=== PATIENT | female | born 1960 | race Caucasian/White ===

== ENCOUNTER 2019-02-16 07:54 | Inpatient (IN) | payer MEDICARE, MEDICAID ==
--- NOTE | 2019-02-16 08:18 | ED ---
Altered Mental Status - HPI Summary HPI Summary: Patient is a 58 y/o F presenting to [facility] via EMS for AMS. Patient was found unconscious in front of kitchen fridge this morning by . noted the patient was still breathing at the time and he called EMS. EMS reports that the had stated that the patient was at baseline last night. Upon EMS arrival, patient was moaning and incomprehensible. Consciousness gradually improved during transport, patient is alert but disoriented. Patient had complaints of NARANJO and slight photophobia. However, she is unable to answer most questions. She had slurred voice, but reports this is typical for the patient. Hx of brain surgery 15 years ago is noted. Patient had also noted that she was thirsty; BG was 174 per EMS. She also states that she had taken some pills last night, but does not answer any further questions about this. believes there were no illicit drugs involved. PMHx of HTN, patient is on gabapentin as well. EMS also states that the patient appeared to be having visual hallucinations during transport, as she was asking, "Why am I seeing things?" EMS 12 Lead was nondiagnostic for STEMI. EMS arrived 0750, provider at bedside immediately to evaluate. Home medications and allergies are reviewed. Patient is a level 5 caveat due to AMS. - History Of Current Complaint Stated Complaint: UNRESPONSIVE THIS AM PER EMS Hx Obtained From: Patient - limited history due to AMS, EMS Hx From Patient Unobtainable Due To: Altered Mental Status - limited history due to AMS, Patient is a level 5 caveat due to AMS. Onset/Duration: Still Present Timing: Constant Character: Responsiveness Associated Signs And Symptoms: Positive: Headache - Allergies/Home Medications Allergies/Adverse Reactions: Allergies Allergy/AdvReac Type Severity Reaction Status Date / Time No Known Allergies Allergy Verified 02/16/19 07:59 Home Medications: Home Medications Divalproex Sodium [Divalproex Sodium ER] 500 mg PO QPM 02/16/19 [History Confirmed 02/16/19] Ferrous Sulfate 325 mg PO DAILY 02/16/19 [History Confirmed 02/16/19] Gabapentin CAP(*) [Neurontin 100 mg CAP(*)] 100 mg PO BID 02/16/19 [History Confirmed 02/16/19] Naproxen [Naproxen 500 mg tab] 500 mg PO BID PRN 02/16/19 [History Confirmed ] hydroCHLOROthiazide [Hydrochlorothiazide] 25 mg PO DAILY 02/16/19 [History Confirmed 02/16/19] PMH/Surg Hx/FS Hx/Imm Hx Endocrine/Hematology History: Denies: Hx Diabetes Cardiovascular History: Reports: Hx Hypertension Denies: Hx Pacemaker/ICD History: Denies: Hx Renal Disease Sensory History: Reports: Hx Hearing Aid - WILL REMOVE Psychiatric History: Denies: Hx Panic Disorder - Cancer History Cancer Type, Location and Year: BRAIN TUMOR Hx Chemotherapy: No Hx Radiation Therapy: No - Surgical History Surgery Procedure, Year, and Place: lt sided brain surgery 11/08/2007- SEE OTHER FACILITIES REPORTS FOR INFORMATION, OPERATIVE REPORT UNOBTAINABLE, OK'D FOR 1.[address] ANDERSON - Family History Known Family History: Negative: Cardiac Disease, Hypertension, Diabetes - Social History Lives: With Family Alcohol Use: None Substance Use Type: Reports: None Review of Systems - ROS Summary Review of Systems Summary: Patient is a level 5 caveat due to AMS. Positive: Photophobia Neurological: Other - positive - AMS Positive: Headache Psychological: Other - positive - visual hallucinations All Other Systems Reviewed And Are Negative: No - Comments Additional Review of Systems Comments: Patient is a level 5 caveat due to AMS. Physical Exam - Summary Physical Exam Summary: VITAL SIGNS: Reviewed. GENERAL: Patient is a well-developed and nourished female who is lying comfortable in the stretcher. Patient is not in any acute respiratory distress. HEAD AND FACE: No signs of trauma. No ecchymosis, hematomas or skull depressions. No sinus tenderness. EYES: PERRLA, EOMI x 2, No injected conjunctiva, no nystagmus. EARS: Hearing grossly intact. Ear canals and tympanic membranes are within normal limits. MOUTH: Oropharynx within normal limits. NECK: Supple, trachea is midline, no adenopathy, no JVD, no carotid bruit, no c- spine tenderness, neck with full ROM. CHEST: Symmetric, no tenderness at palpation. LUNGS: Clear to auscultation bilaterally. No wheezing or crackles. CVS: Regular rate and rhythm, S1 and S2 present, no murmurs or gallops appreciated. ABDOMEN: Soft, non-tender. No signs of distention. No rebound, no guarding, and no masses palpated. Bowel sounds are normal. EXTREMITIES: FROM in all major joints, no edema, no cyanosis or clubbing. NEURO: Agitated, alert but not oriented, confused, unable to respond to any questions or follow commands, GCS 14. SKIN: Dry and warm. Triage Information Reviewed: Yes Vital Signs On Initial Exam: Initial Vitals Temp Pulse Resp BP Pulse Ox 98.2 F 78 14 136/78 99 02/16/19 07:56 02/16/19 07:56 02/16/19 07:56 02/16/19 07:56 02/16/19 07:56 Vital Signs Reviewed: Yes Completion Of Physical Exam Limited Due To: Altered Mental Status, Level 5 - [place] Coma Scale Best Eye Response: 4 - Spontaneous Best Motor Response: 6 - Obeys Commands Best Verbal Response: 4 - Confused Coma Scale Total: 14 Diagnostics - Laboratory Result Diagrams: 02/16/19 08:22 02/17/19 04:30 Lab Statement: Any lab studies that have been ordered have been reviewed, and results considered in the medical decision making process. - Radiology CXR Radiology Interpretation Completed By: Radiologist Summary of Radiographic Findings: IMPRESSION: NO ACTIVE CARDIOPULMONARY DISEASE IS NOTED. THIS REPORT WAS REVIEWED BY DR. TERESA - CT BRAIN CT CT Interpretation Completed By: Radiologist Summary of CT Findings: IMPRESSION: 1. No acute intracranial abnormality. 2. Postoperative changes. THIS REPORT WAS REVIEWED BY DR. TERESA. - EKG 0816 Cardiac Rate: NL - rate of 65 BPM EKG Rhythm: Sinus Rhythm Summary of EKG Findings: EKG showed NSR with rate of 65 BPM, no STEMI. ED physician has reviewed and interpreted this EKG. Re-Evaluation - Re-Evaluation First Eval Re-Evaluation Time: 08:41 Change: Improved Comment: Patient is alert and oriented x3 at present. Patient states that she has a NARANJO and notes that she has Hx of seziures, for which she is followed by Dr. Aguila. Second Eval Re-Evaluation Time: 08:53 Comment: Aware of acetaminophen level of 161. Third Eval Re-Evaluation Time: 09:05 Comment: Charge nurse Barbara contacted poison control. Per her note, "Spoke with poison control, Crys. Received recommendations are to start to acetadote , to replace K, add magnesium and repeat CMP and APAP level in 6hrs. They also recommend adding depakote level." Altered Mental Statu Course/Dx - Course Assessment/Plan: Patient is a 58 y/o F presenting to [facility] via EMS for AMS. Patient was found unconscious in front of kitchen fridge this morning by . noted the patient was still breathing at the time and he called EMS. EMS reports that the had stated that the patient was at baseline last night. Upon EMS arrival, patient was moaning and incomprehensible. Consciousness gradually improved during transport, patient is alert but disoriented. Patient had complaints of NARANJO and slight photophobia. However, she is unable to answer most questions. She had slurred voice, but reports this is typical for the patient. Hx of brain surgery 15 years ago is noted. Blood work without any significant abnormality except for potassium level of 3.2, glucose 135, urinalysis is negative for UTI, acetaminophen level of 161. Head CT impression: No acute intracranial abnormality. Postoperative changes. Chest x-ray impression: No active cardiopulmonary disease. Initially in the ED course the patient was with altered mental status, she was moving all over the place and alert but not oriented. However, approximately an hour later, the patient is alert and oriented 3. She doesnt remember exactly what happened to her but she is complaining of a severe migraine headache. She has a history of migraine headaches. Therefore the patient was given Toradol, Reglan and Benadryl. The patient also reports that she has a history of seizures and family members reports that she may have had a seizure. However, they are not sure. Since the acetaminophen level was 161, discussed the case with poison control and they recommend for the patient to be started on acetylcysteine. The patient also was given potassium chloride for hypokalemia. I discussed my physical exam and findings with Dr. Caldwell from the ICU services and he accepted the patient for admission. Patient is hemodynamically stable and now she is alert oriented 3. Dr. Caldwell also requested to get a consult from neurology. I discussed case with Dr. Winter from neurology and he will consult for this patient. - Diagnoses Provider Diagnoses: Tylenol toxicity, Altered mental state - Provider Notifications Discussed Care Of Patient With: Boogie Caldwell Time Discussed With Above Provider: 09:21 Instructed by Provider To: Other - Dr. Zhao communicated that Brain CT was negative at 0828. 0921 - Patient's case was discussed with Dr. Caldwell, ICU. Dr. Caldwell states that he would like a repeat acetaminophen level. Neurology consult to be obtained. 0939 - Dr. Caldwell evaluated the patient. Patient had reported recent change to her depakote medication. Dr. Caldwell to admit the patient. 1010 - Patient's case was discussed with Dr. Winter, Dr. Winter agrees to consult on the patient. - Critical Care Time Critical Care Time: 75-104 min Discharge ED - Sign-Out/Discharge Documenting (check all that apply): Patient Departure - admit All imaging exams completed and their final reports reviewed: Yes Patient Received Moderate/Deep Sedation with Procedure: No - Discharge Plan Condition: Stable Disposition: ADMITTED TO [facility] - Billing Disposition and Condition Condition: STABLE Disposition: Admitted to [facility] - Attestation Statements Document Initiated by Veronicae: Yes Documenting Scribe: EDWIN PUCKETT Provider For Whom Scribe is Documenting (Include Credential): STEPHANY TERESA MD Scribe Attestation: IEDWIN, scribed for STEPHANY TERESA MD on 02/17/19 at 0837. Scribe Documentation Reviewed: Yes Provider Attestation: The documentation as recorded by the EDWIN lares accurately reflects the service I personally performed and the decisions made by STEPHANY chavez MD Status of Scribe Document: Viewed
[2019-02-16 08:32] LABS: ABS Lymphocytes 1.1 10^3/ul (1.0-4.8); ABS Monocytes 0.2 10^3/ul (0-0.8); ABS Neutrophils 3.9 10^3/ul (1.5-7.7); Eosinophil % 0.2 %; Hematocrit 36 % (35-47); Lymphocyte % 21.1 %; Mean Corpuscular HGB Conc 33 g/dL (31-36); Mean Corpuscular Hemoglobin 31 pg (27-31); Mean Corpuscular Volume 94 fL (80-97); Platelet Count 211 10^3/uL (150-450); Red Blood Count 3.82 10^6 /uL (3.70-4.87); Red Cell Distribution Width 13 % (10-15); White Blood Count 5.3 10^3/uL (3.5-10.8)
[2019-02-16] MEDS ORDERED: Ketorolac INJ* 30 MG/ML 1 ML VIAL IV PUSH ONE (08:42)
[2019-02-16] MEDS ORDERED: diPHENhydraMINE IV* 50 MG/ML 1 ml VIAL (BENADRYL) SLOW PUSH ONE (08:42)
[2019-02-16] MEDS ORDERED: NS 0.9% 1000 ML** 1,000 ML IV ONE (08:42)
[2019-02-16] MEDS ORDERED: Metoclopramide IV* 5 MG/ML 2 ML VIAL IV SLOW PU ONE (08:42)
[2019-02-16 08:48] LABS: ALT 51 U/L (7-52); AST 52 U/L (13-39); Albumin 4.1 g/dL (3.2-5.2); Albumin/Globulin Ratio 1.7 (1-3); Alkaline Phosphatase 82 U/L (34-104); Anion Gap 6 mmol/L (2-11); BUN/Creatinine Ratio 24.7 (8-20); Blood Urea Nitrogen 18 mg/dL (6-24); CO2 Carbon Dioxide 28 mmol/L (22-32); Chloride 102 mmol/L (101-111); Creatine Kinase 100 U/L (10-223); EGFR African American 99.8 (>60); EGFR Non-African American 82.5 (>60); Globulin 2.4 g/dL (2-4); Glucose 135 mg/dL (70-100); Potassium 3.2 mmol/L (3.5-5.0); Sodium 136 mmol/L (135-145); Total Protein 6.5 g/dL (6.4-8.9)
[2019-02-16 08:49] LABS: Alcohol < 10 mg/dL (<10); Salicylate < 2.50 mg/dL (<30)
[2019-02-16 08:53] LABS: Acetaminophen 161 mcg/mL
[2019-02-16 09:03] LABS: TSH (Thyroid Stimulating Horm) 0.87 mcIU/mL (0.34-5.60)
[2019-02-16] MEDS ORDERED: Potassium Chlor TAB* 20 MEQ TAB.ER PO ONE (09:06)
[2019-02-16 09:08] LABS: Urine Appearance Clear; Urine Bacteria Absent (Absent); Urine Bilirubin Negative (Negative); Urine Blood Negative (Negative); Urine Color Yellow; Urine Glucose Negative (Negative); Urine Ketones Negative (Negative); Urine Nitrite Negative (Negative); Urine Protein Negative (Negative); Urine Red Blood Cell Absent (Absent); Urine Specific Gravity 1.041 (1.010-1.030); Urine Squamous Epithelial Cell Present (Absent); Urine Urobilinogen Negative (Negative); Urine White Blood Cell Trace(0-5/hpf) (Absent)
[2019-02-16] MEDS ORDERED: Acetylcysteine ORAL SOL* 200 MG/ML VIAL PO ONE (09:08)
[2019-02-16 09:29] LABS: Urine Benzodiazepine Screen None Detected (None Detect); Urine Opiates Screen None Detected (None Detect)
--- NOTE | 2019-02-16 09:56 | HP ---
History of Present Illness - History of Present Illness Reason for Visit: LOC History of Present Illness: 58 F with hx of seizures (last seizures 15 years ago) on Depakote and s/p temporal lobe resection 15 years ago p/w LOC. found patient in kitchen. Patient was in USOH prior to episode. No preceding cardiac Sx's such as CP's, palpitations, N/V, pre-syncope. Patient denies any focal neuro deficits including motor, sensory or visual deficits. found patient confused after episode. In the next hour though patient was more alert and oriented. No trauma to body. This week Depakote levels were "changed around by Neurologist per ." Patient takes her medications. No ETOH or drugs. Patient does state she takes 2 Tylenol per day for headaches. Patient evaluated in the ED. CTH negative. Depakote levels pending. Tylenol levels sent and were elevated. Repeat levels pending. Per the patient, she denies taking no more than 2 Tylenol a day. All other urine toxicology negative. ICU called for elevated Tylenol levels. - Past Medical History Cardiac: HTN FAMILY INTERVENTION SPECIALIST: Migraine, Seizure, Other - temporal lobe resection 15 years ago Heme/Onc: Iron deficiency anemia Psych: Other - migraines - Past Family History Family History: None - Past Social History Smoke: No Alcohol: None Drugs: None Lives: With Family Review of Systems - Review of Systems ENT: Positive: Other - WALES Neurological: Positive: Other - chronic headaches - Medications/Allergies Allergies/Adverse Reactions: Allergies Allergy/AdvReac Type Severity Reaction Status Date / Time No Known Allergies Allergy Verified 02/16/19 07:59 Medications: Current Medications Acetylcysteine 8,355 mg/ (Dextrose) 241.775 mls @ 241.775 mls/hr IV ONCE ONE Stop: 02/16/19 10:59 Last Admin: 02/16/19 09:40 Dose: 241.775 mls/hr Exam - Exam Vital Signs: Vital Signs (72 hours) 02/16/19 02/16/19 02/16/19 07:55 07:56 08:00 Temperature 98.2 F Pulse Rate 73 78 70 Respiratory 16 14 15 Rate Blood Pressure 136/78 136/78 (mmHg) O2 Sat by Pulse 98 99 99 Oximetry 02/16/19 02/16/19 02/16/19 08:10 08:40 09:00 Temperature Pulse Rate 80 78 69 Respiratory 16 15 17 Rate Blood Pressure 150/80 154/75 (mmHg) O2 Sat by Pulse 99 99 100 Oximetry 02/16/19 02/16/19 09:11 09:40 Temperature Pulse Rate 73 74 Respiratory 14 16 Rate Blood Pressure 142/77 132/79 (mmHg) O2 Sat by Pulse 98 98 Oximetry General: Alert, Oriented x3, Other - lethargic HEENT: Atraumatic, PERRLA, EOMI Lungs: Clear to auscultation Cardiovascular: Regular rate Abdomen: Normal bowel sounds, Soft, No tenderness, No hepatospenomegaly Extremities: No clubbing, No cyanosis, No edema Skin: No rashes, No significant lesion Neurological: Normal speech, Other - WALES Psych/Mental Status: Mental status NL Assessment/Plan - Assessment/Plan Assessment: Seizures Tylenol OD? Migraines Plan: Check EEG Fall and seizure precautions Check Depakote levels Neurology consult Repeat Tylenol levels. If elevated, then start NAC 20 hour protocol F/U Liver enzymes and coags Continue NAC CCM time 45 minutes
[2019-02-16] MEDS ORDERED: D5W IV ONE ×3 (10:00→15:00)
[2019-02-16] MEDS ORDERED: ACETYLCYSTEINE IV ONE ×3 (10:00→15:00)
--- NOTE | 2019-02-16 14:31 | EEG ---
ELECTROENCEPHALOGRAPHY: DATE OF STUDY: 02/16/19 - ROOM #ICU-05 DATE READ: 02/16/19 ORDERED BY: Dr. Swapnil Muñoz. CLINICAL PROBLEM: Ms. Hernandez is a 58-year-old female who was found unresponsive. This EEG was obtained to evaluate for epileptiform discharges or electrographic seizures. MEDICATIONS: 1. Depakote. 2. Gabapentin. CLINICAL STATE: Waking. REPORT: The waking background showed appropriate organization with clearly defined anterior-posterior voltage and frequency gradients. There was a well- defined posterior dominant rhythm of 10 Hz, which was symmetrical and showed normal reactivity. Anteriorly, there was an expected pattern of lower voltage, irregular, mixed faster frequency. Over the left temporal region, there was a continuous high amplitude alpha frequency of 9 to 10 Hz seen throughout the recording. Hyperventilation and photic stimulation were not performed. Single electrode EKG showed normal sinus rhythm with a rate of 90 beats per minute. Throughout the recording, there were no epileptiform discharges. CLINICAL IMPRESSION: This is an essentially normal awake EEG with high amplitude alpha frequency over the left temporal region most consistent with a breach rhythm. There were no epileptiform discharges or electrographic seizures. [id number]/[facility] #: [id number] [facility] CENTERLiset
[2019-02-16 14:52] LABS: Magnesium 1.8 mg/dL (1.9-2.7)
[2019-02-16] MEDS: Divalproex ER TAB(*) 500 MG PO SCH ×2 (16:08→19:39)
[2019-02-16] MEDS: Potassium Chlor TAB* 20 MEQ TAB.ER PO ONE ×2 (16:09→16:11)
--- NOTE | 2019-02-16 16:29 | CONS ---
NEUROLOGY CONSULTATION NOTE: DATE OF CONSULT: 02/16/19 CONSULTING PROVIDER: Dr. Muñoz. REASON FOR CONSULT: Suspect seizures. CHIEF COMPLAINT: Found unresponsive. HISTORY OF PRESENT ILLNESS: Mrs. 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 The patient follows up with Dr. Aguila for seizures and headaches. Her last seizure was in 2007 before the diagnosis of the intracranial tumor. The patient has not had any seizures since then. The patient is on Depakote 500 mg extended release at night. Her level has been subtherapeutic since 2013. No intervention or change in her medication was made because the patient is seizure free. According to the family, the patient has been complaining of forgetfulness, increased headaches, and feeling fatigued for the past 1 year. The patient has been averaging 8 to 12 tablets of Tylenol 500 mg a day. The patient apparently was last known well last night. She was complaining of a headache. She took 4 tablets of 500 mg each of Tylenol. She then woke up in the middle of the night and took another 4 tablets of Tylenol. She finally woke up at 5:30, went to the kitchen and then does not recall the events that took place. The patient was found by her at 6:15 on the floor cyanotic, cold to touch, and unresponsive. There was no reported urinary or bowel incontinence. There was no tongue biting. The patient recalls brewing her coffee and going in the kitchen, opening the refrigerator to get creamers. She did not hit her head. She has no residual weakness. She is back to her normal self. According to her daughter, the patient has been acting "weird" for the last few weeks. She is forgetting conversations and when talking to friends, she texted the same messages over and over again every 10 to 15 minutes. This has been ongoing throughout the summer. During family events, the patient does not get involved in barbeque gatherings and interact with people like she used to do. The patient reports chronic headaches. The headaches are described as pressure pain in the front region, nonradiating, associated with light sensitivity and nausea, and is currently 8/10 in severity. Tylenol definitely helps the pain. She thinks the medication is causing the headaches. I reviewed Dr. Aguila's note from recent encounter in December 2018 where gabapentin was increased to help with the patient's pain. There was a reported MRI brain done recently to look for any tumor recurrence. The brain MRI was done on 09/06/18 and was reported to show status post resection of the left anterior temporal lobe with no abnormal enhancement to suggest residual or recurrent tumors. PAST MEDICAL HISTORY: Migraine headaches; left anterior temporal tumor, status post resection; rare seizures with last seizure occurring will be 08/2007; iron deficiency anemia; hypertension; hearing impairment due to a mumps infection when she was a child. MEDICATIONS: 1. Naproxen 500 mg p.o. b.i.d. 2. Ferrous sulfate 325 mg p.o. daily. 3. Hydrochlorothiazide 25 mg p.o. daily. 4. Depakote extended release 500 mg p.o. at night. 5. Gabapentin, she is taking 100 mg in the morning and 300 at night. ALLERGIES: No known drug allergies. FAMILY HISTORY: No family history of stroke or seizures. SOCIAL HISTORY: The patient lives with her . She is on disability. She quit smoking over 30 years ago. She denied any excessive alcohol use. She drinks occasionally during family gatherings. REVIEW OF SYSTEMS: A 14-point review of systems was obtained and otherwise negative except for what is mentioned in the HPI. PHYSICAL EXAM: Vitals: Temperature of 98.6, pulse of 61, respiratory rate of 11, oxygen saturation of 99%, blood pressure is 164/80. General: Well- nourished, well- developed female in no acute distress. Head: Atraumatic and normocephalic without any obvious abnormality. Eyes: Conjunctivae/corneas are clear. Neck is supple and symmetrical with no carotid bruits. Cardiovascular: Regular rate and rhythm with normal S1, S2. Respiratory: Clear to auscultation bilaterally with no wheezing or rhonchi. Extremities: Normal range of motion with no cyanosis, edema, hammertoes or high arches. Skin: No skin lesions or lacerations. Psych: Broad affect, normal mood. Easy to establish rapport. Neurological Examination: Mental Status: Awake, alert, oriented to person, place, time, and general circumstances. Her speech and language including expression and comprehension were assessed and found to be normal. Cranial Nerves: Pupils equal, round, reactive to light. Extraocular muscles are intact. Normal confrontation testing bilaterally. Normal sensation to light touch bilaterally. No facial asymmetry. Tongue is symmetric and midline with no atrophy or fasciculation. She is hard of hearing. Motor Examination: 5/5 strength in the upper and lower extremities with normal tone and bulk throughout. Sensation is intact to light touch and pinprick throughout. Reflexes 2+ in the upper and lower extremities, 1+ at the ankles bilaterally. Downgoing plantar responses. Coordination: Normal finger- to-nose and [id number] testing bilaterally. Gait: Normal stance and gait with no ataxia. DIAGNOSTIC STUDIES/LAB DATA: Labs, imaging, and other diagnostic testing: The patient was found to have an elevated acetaminophen level of 161 and it dropped to 131 after an acetylcysteine. The patient's valproic acid level was 34. This has been one of the lowest Depakote levels obtained in the past. The patient was admitted to the ICU for an acetylcysteine protocol due to acetaminophen toxicity. Imaging studies: CT of the head without contrast was completed today and showed no evidence of acute intracranial abnormality. There are postoperative changes. There is an EEG that was obtained today and was personally read by me. This is essentially a normal EEG with breach rhythm over the left temporal region. ASSESSMENT AND RECOMMENDATION: Mrs. Astrid Hernandez is a 58-year-old female with a history of left anterior tumor, temporal astrocytoma status post resection in 2007, who had her last seizure in 2007, who presented after being found unresponsive, cyanotic, and pale appearing. The patient was found to have acetaminophen toxicity. However, there is concern that she may have had a seizure that led to her transient unresponsive episode. 1. Acetaminophen toxicity. The patient takes 6000 to 7000 mgs of acetaminophen a day due to her severe headache. An acetylcysteine protocol has been initiated. The patient is currently in ICU for close monitoring. Her acetaminophen level has decreased over the last few hours. I do not think this clearly explains her brief episode of unresponsiveness. 2. Suspicion for breakthrough seizure - the patient's valproic acid level was subtherapeutic. Although she has not had seizures for over 10 years now, she may have had a breakthrough event given the low valproic acid level. Other concerning etiologies include tumor recurrence that may have caused a seizure, especially given the description of her memory impairment and reduced interaction with family members over the past few months. I recommend obtaining an MRI with and without contrast to evaluate for any possible recurrence of the left anterior temporal lobe astrocytoma. No need for intravascular imaging as I do not suspect this is a transient ischemic attack or a stroke. I have increased her Depakote to 500 mg twice daily. This will help with her migraine headache, help with any mood problems, and control her seizures. We discussed other interventions such as Vimpat, Keppra, or zonisamide. We have decided to stick with the Depakote given that she has been tolerating the medication since 2007, and she does not have any evidence of severe liver injury due to the acetaminophen toxicity. However, if her liver enzymes worsen overnight or the next few days, we will need to discuss weaning her off the Depakote and starting her on either Vimpat or levetiracetam. Continue seizure precautions. The patient does not operative a vehicle. We discussed good seizure hygiene. 3. Headaches: likely due to the combination of analgesic rebound, migraine, and post surgical headache- increase Depakote. Minimize the use of analgesics. Start magnesium oxide 400 mg daily. I will continue to follow. I discussed the plan and care with the patient and her daughter at bedside. I answered their questions to the best of my abilities. I will continue to follow. [id number]/[facility] #: [id number] ODALIS
[2019-02-16] MEDS ORDERED: Gadoteridol* (CONTRAST) 279.3 MG/ML 10 ML IV ONE (17:33)
[2019-02-17] MEDS ORDERED: Gabapentin CAP(*) 300 MG PO ONE (01:12)
[2019-02-17 05:11] LABS: Acetaminophen < 15 mcg/mL
[2019-02-17 05:12] LABS: ALT 169 U/L (7-52); AST 92 U/L (13-39); Albumin/Globulin Ratio 1.8 (1-3); Alkaline Phosphatase 79 U/L (34-104); Anion Gap 6 mmol/L (2-11); BUN/Creatinine Ratio 9.9 (8-20); Blood Urea Nitrogen 7 mg/dL (6-24); CO2 Carbon Dioxide 29 mmol/L (22-32); Chloride 106 mmol/L (101-111); EGFR Non-African American 85.2 (>60); Globulin 2.2 g/dL (2-4); Glucose 128 mg/dL (70-100); Potassium 3.1 mmol/L (3.5-5.0); Sodium 141 mmol/L (135-145); Total Protein 6.2 g/dL (6.4-8.9)
[2019-02-17] MEDS ORDERED: Potassium Chlor TAB* 20 MEQ TAB.ER PO ONE (06:30)
[2019-02-17] MEDS: Divalproex ER TAB(*) 500 MG PO SCH ×2 (07:57→21:10)
[2019-02-17] MEDS ORDERED: Naproxen TAB* 250 MG PO PRN (08:28)
[2019-02-17] MEDS: Gabapentin CAP(*) 100 MG PO SCH ×2 (08:43→21:10)
[2019-02-17] MEDS ORDERED: Hydrochlorothiazide TAB* 25 MG PO SCH (09:00)
--- NOTE | 2019-02-17 09:27 | PN ---
Subjective Date of Service: 02/17/19 Length of Stay: 1 Days Neurology is following for suspected seizures. Interval History: She has not had any unusual episodes overnight. She is eating her breakfast and requesting to be discharged. I explained to her the bump in her liver enzymes, and the importance of monitoring her for at least another day. She agreed. She denied any headaches today but has sinus pressure in the maximally region. She denied any new weakness or paresthesia. No family was at bedside today. Labs: Potassium: 3.1 Glucose: 128 Magnesium: 1.8 AST: 52 -> 92 ALT: 51 -> 169 Total protein 6.2 TSH: 0.87 Acetaminophen: 131 -> <15 MRI brain with/without contrast completed on 02/16/2019: Reviewed. 1. No acute ischemia, mass, hemorrhage or enhancing lesions identified. 2. Previous left temporal resection, with stable post operative changes Review of Systems: Denied CP, SOB, or palpitations. Objective Active Medications: Divalproex Sodium (Depakote Er Tab(*)) 500 mg PO BID [facility] Last Admin: 02/17/19 07:57 Dose: 500 mg Gabapentin (Neurontin Cap(*)) 100 mg PO BID [facility] Last Admin: 02/17/19 08:43 Dose: 100 mg Hydrochlorothiazide (Hydrodiuril Tab*) 25 mg PO DAILY [facility] Last Admin: 02/17/19 08:44 Dose: 25 mg Naproxen (Naprosyn Tab*) 500 mg PO BID PRN PRN Reason: PAIN - MILD Last Admin: 02/17/19 08:44 Dose: 500 mg Vital Signs 02/17/19 02/17/19 02/17/19 07:30 08:00 08:01 Temperature 98.7 F Pulse Rate 81 84 85 Respiratory 20 17 15 Rate Blood Pressure 146/73 153/82 (mmHg) O2 Sat by Pulse 96 99 96 Oximetry 02/17/19 08:32 Temperature Pulse Rate 75 Respiratory 18 Rate Blood Pressure 168/84 (mmHg) O2 Sat by Pulse 97 Oximetry Intake and Output Last 24 Hours 02/15/19 02/16/19 02/17/19 02/18/19 06:59 06:59 06:59 06:59 Intake Total 2228.9 Output Total 3100 500 Balance -871.1 -500 Weight 132 lb 4.438 oz Intake: IV Fluids 1248.9 mucomyst 1248.9 Oral 980 Output: Urine 3100 500 Other: # Bowel Movements 1 Estimated Stool Amount Large Oxygen Devices in Use Now: None Neurology Exam: General: Well nourished, well developed, and in no acute distress HEENT: Normocephelic/atraumatic, sclera anicteric, mucous membranes moist Neck: Supple Chest: Clear to auscultation bilaterally Cardiovascular: Regular rate and rhythm without murmurs, rubs, gallops Extremities: No clubbing, cyanosis, or edema Neurological Findings: Awake, alert, and oriented to person, place, and time. Speech: fluent without dysarthria, repetition intact Cranial Nerve: PERRL, EOM intact, VFF, no nystagmus, face symmetric bilaterally , facial sensation intact, hard of hearing, palate elevates symmetrically, tongue midline, SCM and Trapezius s/s. Motor: s/s throughout, proximal and distal extremities x4 tone/bulk normal Sensation: intact to LT/PP bilaterally upper and lower extremities Deep Tendon Reflex: 1+ symmetric in the upper/lower extremities, Babinski - down going Finger to nose, rapid alternating movements intact without tremor, no dysdiadochokinesia Gait: she has been walking around to the toilet, but not outside the room. Not assessed Result Diagrams: 02/16/19 08:22 02/17/19 04:30 Microbiology and Other Data: Microbiology 02/16/19 11:16 Nasal Screen MRSA (PCR) - Final Nasal Mrsa Not Detected Assessment/Plan Mrs. 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 The patient has recovered well and is back to her normal self. She was found to have unintentional acetaminophen overdose (averaged 6-7000 mg of acetaminophen intake in 24 hours due to headaches). Overnight, the patient had an increase in transaminasis with resolution of the acetaminophen toxicity. She has not had any seizures. 1. Unintentional acetaminophen overdose- acetaminophen level is <13 now. NAC will be discontinued today (according to the bedside nurse). Continue to hold acetaminophen. Encouraged her to take magnesium oxide 400 mg daily for headache prevention. 2. Acute transaminitis- could be related to a late effect of acetaminophen toxicity, or due to the increase in Depakote that was done yesterday. Repeat the LFTs today. If it's trending upward, will discontinue Depakote and start lacosamide 100 mg twice daily. She will benefit from L-carnitine supplementation. 3. Tumor related seizures - on Depakote. Repeat valproic acid level. If transaminitis does not improve, discontinue Depakote and start lacosamide 100 mg twice daily. 4. Headache- due to the combination of analgesic rebound headache, migraine, and possible tumor resection related nerve injury. NSAIDs and magnesium oxide supplementation. I will follow-up with the results and make further recommendations if necessary. Discussed with the patient and she agreed with the plan.
--- NOTE | 2019-02-17 10:21 | PN ---
Progress Note - Progress Note Date of Service: 02/17/19 - Transfer note Note: Pt seen and examined at bedside. Pt reports sinus headaches. No acute events o/ n. Pt asking to be discharged home Home meds: Divalproex Sodium [Divalproex Sodium ER] 500 mg PO QPM Ferrous Sulfate 325 mg PO DAILY Gabapentin CAP(*) [Neurontin 100 mg CAP(*)] 100 mg PO BID Naproxen [Naproxen 500 mg tab] 500 mg PO BID PRN hydroCHLOROthiazide [Hydrochlorothiazide] 25 mg PO DAILY Active Medications Generic Name Dose Route Start Last Admin Trade Name Freq PRN Reason Stop Dose Admin Divalproex Sodium 500 mg 02/16/19 15:00 02/17/19 07:57 Depakote Er Tab(*) PO 500 mg BID [facility] Administration Gabapentin 100 mg 02/17/19 09:00 02/17/19 08:43 Neurontin Cap(*) PO 100 mg BID [facility] Administration Hydrochlorothiazide 25 mg 02/17/19 09:00 02/17/19 08:44 Hydrodiuril Tab* PO 25 mg DAILY [facility] Administration Naproxen 500 mg 02/17/19 08:28 02/17/19 08:44 Naprosyn Tab* PO 500 mg BID PRN Administration PAIN - MILD Vital Signs Temp Pulse Resp BP Pulse Ox 98.7 F 89 20 107/92 98 02/17/19 08:00 02/17/19 09:01 02/17/19 10:00 02/17/19 09:01 02/17/19 09:01 O/E: Pt in NAD HEENT: PERRLA, no JVD Lungs: Good a/e b/l CVS: S1, S2+ Abd: Soft, BS+ Ext: No edema Neuro: Alert,awake Laboratory Results - last 24 hr 02/16/19 02/16/19 02/17/19 08:22 09:59 04:30 Sodium 136 141 Potassium 3.2 L 3.1 L Chloride 102 106 Carbon Dioxide 28 29 Anion Gap 6 6 BUN 18 7 Creatinine 0.73 0.71 Est GFR ( Amer) 99.8 103.0 Est GFR (Non-Af Amer) 82.5 85.2 BUN/Creatinine Ratio 24.7 H 9.9 Glucose 135 H 128 H Calcium 9.0 9.0 Magnesium 1.8 L Total Bilirubin 0.30 0.40 AST 52 H 92 H ALT 51 169 H Alkaline Phosphatase 82 79 Total Creatine Kinase 100 Troponin I 0.00 Total Protein 6.5 6.2 L Albumin 4.1 4.0 Globulin 2.4 2.2 Albumin/Globulin Ratio 1.7 1.8 TSH 0.87 Salicylates < 2.50 Acetaminophen 161 H* 131 H* < 15 Valproic Acid 34.0 L Serum Alcohol < 10 Transfer summary: 58-year-old female with history of tumor-related seizures, 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 She was evaluated by neurology, evaluated for possible break through seizures. She was found to have unintentional acetaminophen overdose (averaged 6-7000 mg of acetaminophen intake in 24 hours due to headaches). She was started on N- acetyl cysteine. She has completed infusion this am. Overnight, the patient had an increase in transaminasis with resolution of the acetaminophen toxicity, tylenol levels within normal limits. She has not had any seizures. EEG was done this am. Mental status significantly improved this am. She is continued on Depakote. Neurology f/u this am. Pt to have rpt LFTs later today. Potassium was repleted. She was started on regular diet. Elevated BP this am, was restarted on HCTZ. c/ w Neurontin. OOB to chair Pt stable to be transferred to regular medical floor.
[2019-02-17 13:24] LABS: Albumin 4.1 g/dL (3.2-5.2); Albumin/Globulin Ratio 1.6 (1-3); Globulin 2.5 g/dL (2-4); Indirect Bilirubin 0.3 mg/dL (0.3-1.0); Total Bilirubin 0.4 mg/dL (0.2-1.0); Total Protein 6.6 g/dL (6.4-8.9)
--- NOTE | 2019-02-17 16:49 | PN ---
Progress Note - Progress Note Date of Service: 02/17/19 SOAP: Reviewed the results from the most recent LFTs. Recommendations: If the LFTs continue to trend down, then clearly the elevation was related to acetaminophen toxicity and not due to the increase dose in Depakote. Therefore , continue the current dose of Depakote 500 mg BID. Repeat another CMP tomorrow. If the LFTs continue to trend downward, then continue the current Depakote dose. It's still puzzling why she was found unresponsive, but a breakthrough seizure is high on the differentials. I have signed off to Dr. Bustillo and informed him about Mrs. Hernandez. I did not ask him to see the patient tomorrow, but please feel free to call for any questions. We will set up a follow-up appointment with Dr. Aguila within the next 4-6 weeks. Amelia Winter MD
[2019-02-18] MEDS ORDERED: amLODIPine TAB* 5 MG PO SCH (09:00)
[2019-02-18 09:21] LABS: Albumin/Globulin Ratio 1.7 (1-3); BUN/Creatinine Ratio 19.2 (8-20); Calcium 9.5 mg/dL (8.6-10.3); EGFR African American 99.8 (>60); EGFR Non-African American 82.5 (>60); Globulin 2.3 g/dL (2-4); Indirect Bilirubin 0.4 mg/dL (0.3-1.0); Magnesium 1.8 mg/dL (1.9-2.7); Potassium 3.5 mmol/L (3.5-5.0); Total Bilirubin 0.5 mg/dL (0.2-1.0); Total Protein 6.3 g/dL (6.4-8.9)
[2019-02-18] MEDS ORDERED: Magnesium Sulfate 1 GM IV* 1 GM/100 ML BAG IV ONE (09:28)
[2019-02-18] MEDS: Divalproex ER TAB(*) 500 MG PO SCH (10:23)
[2019-02-18] MEDS: Gabapentin CAP(*) 100 MG PO SCH (10:23)
[2019-02-18 12:03] VITALS: BP 124/57
--- NOTE | 2019-02-18 14:45 | PN ---
Subjective Date of Service: 02/18/19 Interval History: Patient has no abdominal pain, nausea, vomiting or jaundice. feels fine; wants to go home Objective Vital Signs - 8 hr 02/18/19 02/18/19 02/18/19 07:15 08:00 10:23 Temperature 97.9 F Pulse Rate 86 Respiratory 16 18 16 Rate Blood Pressure 144/72 (mmHg) O2 Sat by Pulse 99 Oximetry 02/18/19 11:15 Temperature 97.4 F Pulse Rate 79 Respiratory 16 Rate Blood Pressure 124/57 (mmHg) O2 Sat by Pulse 97 Oximetry Oxygen Devices in Use Now: None Exam: Patient is sitting on a chair with no acute distress. HEENT: Normocephalic and atraumatic Lungs: Clear with no added sound Heart: S1/S2 heard with no murmur Abdomen: Soft, nondistended and nontender Extremities: No swelling and cyanosis Neuro: alert, conscious and oriented. Moving all four extremities Result Diagrams: 02/16/19 08:22 02/18/19 08:46 Microbiology and Other Data: Microbiology 02/16/19 11:16 Nasal Screen MRSA (PCR) - Final Nasal Mrsa Not Detected Assess/Plan/Problems-Billing Assessment: 58 y/o F with h/o left temporal astrocytoma(resected), seizures(reolved after tumor resection), HTN presented with unintentional ingestion of tylenol(6000- 7000 mg) and was found responsive, cyanotic and pale. FOund to have acetaminophen toxicity(resolved) and probable recurrence of seizure. - Patient Problems (1) Acetaminophen toxicity Status: Acute Code(s): T39.1X1A - POISONING BY 4-AMINOPHENOL DERIVATIVES, ACCIDENTAL, INIT SNOMED Code(s): 84854866 Comment: unintentional ingestion of tylenol after she had severe headache( 0616-2289 mg) abnormal LFT and serum acetaminophen level high treated with N-acetylcysteine in ICU resolved now advised to be careful about tylenol ingestion (2) Seizure Status: Acute Code(s): R56.9 - UNSPECIFIED CONVULSIONS SNOMED Code(s): 51073295 Comment: was found unresponsive probably had seizure EEG, CT and MRI normal depakote dose increased to 500 mg BID (3) Hypertension Status: Acute Code(s): I10 - ESSENTIAL (PRIMARY) HYPERTENSION SNOMED Code(s) : 69777572 Comment: stopped HCTZ and started on amlodipine 5 mg PO daily was hypokalemic; corrected (4) DVT prophylaxis Status: Acute Code(s): Z29.9 - ENCOUNTER FOR PROPHYLACTIC MEASURES, UNSPECIFIED SNOMED Code(s): 540785832 Comment: ambulatory (5) Full code status Status: Acute Code(s): Z78.9 - OTHER SPECIFIED HEALTH STATUS SNOMED Code(s) : 011433327 Status and Disposition: inpatietn; can be d/c today Attending: Sanujana Rowland Attestation Documenting Resident: Grecia Romano Supervising Physician: Sanjuana Rowland Attestation: This service has been performed in part by a resident under the direction of a teaching physician.I, Sanjuana Rowland, performed the service, or was physically present during the critical, or martinez portions of the service, furnished by the resident. I participated in the management of the patient.
--- NOTE | 2019-02-18 17:00 | DS ---
CC: Ginny Tyler; Dr. Winter * DISCHARGE SUMMARY: DATE OF ADMISSION: 02/16/19 DATE OF DISCHARGE: 02/18/19 PRIMARY CARE PHYSICIAN: Ginny Tyler. PRIMARY DIAGNOSES: 1. Unresponsiveness, likely secondary to seizure disorder. 2. Unintentional acetaminophen overdose. 3. Analgesic rebound headache versus migraine. 4. Hypokalemia from hydrochlorothiazide. SECONDARY DIAGNOSES: 1. Hypertension. 2. Astrocytoma, status post resection. 3. Iron deficiency anemia. CONSULTS: Dr. Winter of Neurology. DISCHARGE MEDICATIONS: 1. Divalproex 500 mg twice a day. 2. Amlodipine 5 mg daily. 3. Ferrous sulfate 1 tab daily on empty stomach. 4. Gabapentin 100 mg twice a day. HISTORY OF PRESENT ILLNESS: Ms. Hernandez is a 58-year-old woman with a history of astrocytoma, status post temporal lobe resection in 2002 with history of seizure , on Depakote, who is presenting with loss of consciousness. Her found her down in her kitchen. She was in her usual state of health prior to this episode without preceding cardiac symptoms such as chest pain, palpitations, nausea, vomiting, or presyncopal symptoms. She denies any focal neuro deficits including motor, sensory, or visual deficits. Her found her confused after this episode. It took about an hour for her to become more alert and oriented. She had no trauma to her body. She states that this week the Depakote levels were changed around by her neurologist. She denies skipping doses of her medication. She denies alcohol or other drugs. She states that prior to this episode she was experiencing a significant headache from her chronic migraines and she took approximately 6000 to 7000 mg of Tylenol before this event. She states she has been taking approximately 8 to 12 tablets of Tylenol 500 mg each day and had not known that this is above the upper limit of normal. Of note, when her found her in the kitchen, she was cyanotic, cold to the touch, and unresponsive. There is no incontinence or tongue biting. She did not hit her head. The patient's daughter thinks her mother has been acting "weird" for the last few weeks, forgetting conversations when talking to friends, texting the same messages over and over again. HOSPITAL COURSE: The patient was admitted to the hospital for EEG monitoring and treatment of Tylenol toxicity with an IV NAC drip. Her Tylenol level decreased and she completed 48 hours on NAC. For her seizures, she was seen and evaluated by Neurology who thought these were breakthrough seizures given her low valproic acid level. Her Depakote was increased to 500 mg twice daily which was also hopefully going to co-treat her chronic migraine headaches. She was also recommended to take magnesium 400 mg daily for headache prevention. She was encouraged to minimize her use of analgesics given likely contribution from medication-induced headaches as well as overdose of Tylenol. Of note on day 2 of admission, the patient's liver enzymes had increased. As they decreased with continuation of NAC drip, it was thought this was from Tylenol rather than from the recent increase in the Depakote dose which has been increased to 500 mg twice daily. An MRI was without acute ischemia, mass, hemorrhage, or enhancing lesions and had stable postoperative changes from her known left temporal resection. Also of note throughout admission, the patient had low potassium requiring significant repletion, so her hydrochlorothiazide was discontinued and she was initiated on amlodipine. PERTINENT STUDIES AND LABS: An EEG was an essentially normal awake EEG with high amplitude alpha frequency over the left temporal region most consistent with a breach rhythm, there were no epileptiform discharges or electrographic seizures. Brain CT: No acute intracranial abnormality, postoperative changes. Brain MRI: No acute ischemia, mass, hemorrhage, or enhancing lesions identified. Previous left temporal lobe resection with stable postoperative changes. DISCHARGE PLAN: The patient is to follow up closely with her primary care physician as well as Dr. Nika Aguila of Neurology. She should continue her home medications as listed above with the notable changes. Her hydrochlorothiazide was discontinued and she was initiated on amlodipine given her persistent hypokalemia and hypomagnesemia during hospitalization. Her divalproex is also increased to 500 mg twice a day. She was educated to also initiate supplementation with magnesium and to avoid use of Tylenol given recent unintentional overuse. She was educated on return precautions which include, but are not limited to right upper quadrant pain, nausea, vomiting, jaundice, or recurrent unresponsive episodes. She should eat a healthy diet, low in processed foods and resume activity as tolerated. DISPOSITION: To home. CONDITION: Good. TIME SPENT: Approximately 60 minutes was spent on discharge of this patient, more than half of which was spent with care and coordination at bedside for interview and exam. [id number]/[facility] #: [id number] ODALIS
[2019-02-18 19:12] LABS: Free Valproic Acid 4 mcg/mL (5 - 25)
== END 2019-02-18 14:00 | disposition home or self-care (01) | DRG 918 ==
LOC: ED 07:54 → ICU 10:15 → MERGE 10:15 → MED 02-17 10:10
PROVIDERS: ADMIT Internal Medicine; ATTEND Internal Medicine
PROC: 4A00X4Z Measurement of Central Nervous Electrical Activity, External Approach (ICD-10-PCS; principal; 2019-02-16)
DX: T39.1X1A Poisoning by 4-Aminophenol derivatives, accidental (unintentional), initial encounter (principal); G40.909 Epilepsy, unspecified, not intractable, without status epilepticus; I10 Essential (primary) hypertension; G43.909 Migraine, unspecified, not intractable, without status migrainosus; G44.40 Drug-induced headache, not elsewhere classified, not intractable; H91.90 Unspecified hearing loss, unspecified ear; R40.2362 Coma scale, best motor response, obeys commands, at arrival to emergency department; R40.2142 Coma scale, eyes open, spontaneous, at arrival to emergency department; R74.0 Nonspecific elevation of levels of transaminase and lactic acid dehydrogenase [LDH]; E87.6 Hypokalemia; T50.2X5A Adverse effect of carbonic-anhydrase inhibitors, benzothiadiazides and other diuretics, initial encounter; R40.2252 Coma scale, best verbal response, oriented, at arrival to emergency department; D50.9 Iron deficiency anemia, unspecified; Z87.891 Personal history of nicotine dependence; Z85.841 Personal history of malignant neoplasm of brain; Z97.4 Presence of external hearing-aid; Y92.009 Unspecified place in unspecified non-institutional (private) residence as the place of occurrence of the external cause
CPT/HCPCS: 36415; 70450; 70553; 71045; 80048; 80053; 80076; 80164; 80165; 80307; 80320; 80329; 81003; 81015; 82140; 82550; 83605; 83735; 84443; 84484; 85025; 87086; 87641; 93005; 95816; 99285; A9270-GY; A9579; G0480; J0132; J1200; J1885; J2765; J3475; J7060